=== PATIENT | male | born 1990 | race Two or more races ===

== ENCOUNTER 2017-06-10 19:34 | Inpatient (IN) | payer OTHER ==
[2017-06-10 20:06] VITALS: BMI 38.0
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
--- NOTE | 2017-06-10 21:06 | HP ---
Admission ROS [facility] Chief Complaint: For rehab from alcohol, marijuana and percocet dependence Allergies/Adverse Reactions: Allergies Allergy/AdvReac Type Severity Reaction Status Date / Time No Known Allergies Allergy Verified 06/10/17 20:16 History of Present Illness: 27 years old male with hx of alcohol dependence and marijuana dependence seeking rehab. Denies in patient treatment and significant sobriety. Reports hx of bipolar disorder, anxiety disorder and depression. Denies medical hx. Exam Limitations: No Limitations - Ebola screening Have you traveled outside of the country in the last 21 days: No Have you had contact with anyone from an Ebola affected area: No Have you been sick,other than usual withdrawal symptoms: No Do you have a fever: No - Review of Systems Constitutional: No Symptoms Reported EENT: reports: No Symptoms Reported Respiratory: reports: No Symptoms reported GI: reports: No Symptoms Reported : reports: No Symptoms Reported Musculoskeletal: reports: Muscle Pain, Muscle Weakness Endocrine: reports: No Symptoms Reported Hematology: reports: No Symptoms Reported Psychiatric: reports: No Sypmtoms Reported, Mood/Affect Appropiate, Orientated x3 Other Systems: Reviewed and Negative Patient History - Patient Medical History Hx Anemia: No Hx Asthma: No Hx Chronic Obstructive Pulmonary Disease (COPD): No Hx Cancer: No Hx Cardiac Disorders: No Hx Congestive Heart Failure: No Hx Hypertension: No Hx Hypercholesterolemia: No HX Cerebrovascular Accident: No Hx Seizures: No Hx Dementia: No Hx Diabetes: No Hx Gastrointestinal Disorders: No Hx Liver Disease: No Hx Genitourinary Disorders: No Hx Sexually Transmitted Disorders: No Hx Renal Disease (ESRD): No Hx Thyroid Disease: No Hx Human Immunodeficiency Virus (HIV): No Hx Hepatitis C: No Hx Depression: Yes Hx Suicide Attempt: Yes Hx Bipolar Disorder: Yes Hx Schizophrenia: Yes - Patient Surgical History Past Surgical History: No Hx Neurologic Surgery: No Hx Cataract Extraction: No Hx Cardiac Surgery: No Hx Lung Surgery: No Hx Abdominal Surgery: No Hx Appendectomy: No Hx Cholecystectomy: No Hx Genitourinary Surgery: No Hx Orthopedic Surgery: No Anesthesia Reaction: No - PPD History Previous Implant?: No PPD to be Administered?: Yes - Smoking Cessation Smoking history: Current every day smoker Aproximately how many cigarettes per day: 40 Hx Chewing Tobacco Use: No Initiated information on smoking cessation: Yes 'Breaking Loose' booklet given: 06/10/17 - Substance & Tx. History Hx Alcohol Use: Yes (BEER/VODKA) Hx Substance Use: Yes (PERCOCET, MARIJUANA) Substance Use Type: Alcohol, Marijuana, Opiates Hx Substance Use Treatment: Yes (OUTPATIENT) - Substances Abused Alcohol Route: Oral Frequency: 1-2 times per week Amount used: 2 PINTS OF VODKA/ 2 of 6 PACKS Age of first use: 8 Date of Last Use: 06/10/17 Marijuana/Hashish Route: Smoking Frequency: Daily Amount used: $10 Age of first use: 13 Date of Last Use: 06/09/17 PERCOCET Route: Oral Frequency: 1-3 times last 30 days Amount used: 20mg Age of first use: 23 Date of Last Use: 05/31/17 Family Disease History - Family Disease History Family Disease History: Diabetes: Grandparent (grandmother), Heart Disease: Father (HTN), Mother (HTN) Admission Physical Exam [facility] - Vital Signs Vital Signs: Vital Signs - 24 hr 06/10/17 20:04 Temperature 97.7 F Pulse Rate 84 Respiratory 20 Rate Blood Pressure 146/67 - Physical General Appearance: Yes: Obese HEENTM: Yes: Normal Voice, EDWIN Respiratory: Yes: Lungs Clear, Normal Breath Sounds, No Respiratory Distress Neck: Yes: Supple Breast: Yes: Breast Exam Deferred Cardiology: Yes: Regular Rhythm, Regular Rate, S1, S2 Abdominal: Yes: Normal Bowel Sounds, Soft Genitourinary: Yes: Within Normal Limits Back: Yes: Normal Inspection Musculoskeletal: Yes: Within Normal Limits Extremities: Yes: Normal Inspection Neurological: Yes: Fully Oriented, Alert Integumentary: Yes: Dry, Other (Tatoos to left chest wall, both hands) Lymphatic: Yes: Within Normal Limits - Diagnostic (1) Opioid abuse Current Visit: Yes Status: Chronic (2) Alcohol dependence Current Visit: Yes Status: Chronic (3) Cannabis dependence Current Visit: Yes Status: Chronic Cleared for Admission [facility] - Detox or Rehab [facility] Level of Care: Observation Bed Detox Regimen/Protocol: Not Applicable Claeared for Rehab Admission: Yes [facility] Breath Alcohol Content Breath Alcohol Content: 0 Urine Drug Screen - Results Drug Screen Negative: No Urine Drug Screen Results: THC-Marijuana Inpatient Rehab Admission - Initial Determination Are CD services needed?: Yes Free of communicable disease: Yes Not in need of hospitalization: Yes - Rehab Admission Criteria Previous failed treatment: Yes Poor recovery environment: Yes Comorbidities: Yes Lacks judgement: No Patient is meeting Inpatient Rehab admission criteria:: Yes
[2017-06-10] MEDS ORDERED: MAGNESIUM HYDROX 2400MG/30ML ORAL SUSPENSION 30 ML CUP PO PRN (22:16)
[2017-06-10] MEDS ORDERED: guaiFENesin/D-METHORPHAN HB 10 ML UNIT-DOSE CUPS PO PRN (22:16)
[2017-06-10] MEDS ORDERED: MENTHOL/PHENOL 1 EACH UD MM PRN (22:16)
[2017-06-10] MEDS ORDERED: MAG HYDROX/AL HYDROX/SIMETH 30 ML UNIT-DOSE CUP PO PRN (22:16)
[2017-06-10] MEDS ORDERED: NICOTINE POLACRILEX 2 MG GUM BC PRN (22:16)
[2017-06-10] MEDS ORDERED: P-EPHED 60MG/TRIPROLIDI 2.5MG TABLET PO PRN (22:16)
[2017-06-10] MEDS ORDERED: ACETAMINOPHEN 325 MG TABLET (FP) PO PRN (22:16)
[2017-06-10] MEDS ORDERED: IBUPROFEN 400 MG TABLET (FP) PO PRN (22:16)
[2017-06-10] MEDS ORDERED: LOPERAMIDE HCL 2 MG CAPSULE PO PRN (22:16)
[2017-06-10] MEDS ORDERED: MAGNESIUM CITRATE 300 ML BOTTLE PO PRN (22:16)
[2017-06-10] MEDS ORDERED: TUBERCULIN PPD 5 TU/0.1ML VIAL ID ONE (23:02)
[2017-06-10] MEDS: diphenhydrAMINE HCL 50 MG CAPSULE PO PRN (23:05)
[2017-06-10 23:28] LABS: URINE APPEARANCE CLEAR; URINE BILIRUBIN NEGATIVE (NEGATIVE); URINE BLOOD NEGATIVE (NEGATIVE); URINE COLOR LTYELLOW; URINE GLUCOSE (UA) NEGATIVE (NEGATIVE); URINE KETONE TRACE (NEGATIVE); URINE NITRITE NEGATIVE (NEGATIVE); URINE PROTEIN NEGATIVE (NEGATIVE); URINE UROBILINOGEN NEGATIVE mg/dL (0.2-1.0)
[2017-06-11] MEDS: NICOTINE 14 MG/24 HOURS TOPICAL PATCH TD SCH (10:03)
[2017-06-11] MEDS: PRENATAL VITAMINS W/ FOLIC ACID TABLET (FP) PO SCH (10:03)
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
[2017-06-11 10:47] LABS: MCH 30.5 pg (25.7-33.7); MCHC 33.2 g/dl (32.0-35.9); MEAN CELL VOLUME 92.1 fl (80-96); PLATELET COUNT 280 K/MM3 (134-434); RDW 13.6 % (11.9-15.9); WHITE BLOOD COUNT 9.5 K/mm3 (4.0-10.0)
[2017-06-11 11:11] LABS: ALBUMIN 3.5 g/dl (3.4-5.0); ALK PHOS 57 U/L (45-117); ANION GAP 6 (8-16); BILIRUBIN,TOTAL 0.5 mg/dL (0.2-1.0); CO2 30 mmol/L (21-32); CREATININE 0.9 mg/dL (0.7-1.3); GLUCOSE,RANDOM 94 mg/dL (74-106); SGOT/AST 15 U/L (15-37); SGPT/ALT 24 U/L (12-78); TOT PROT 6.8 g/dl (6.4-8.2)
[2017-06-11 11:13] LABS: SICKLE CELL SCREEN NEGATIVE (NEGATIVE)
[2017-06-11 11:24] LABS: URINE LEUK ESTERASE Negative (NEGATIVE)
[2017-06-11] MEDS: hydrOXYzine PAMOATE 50 MG CAPSULE (FP) PO PRN ×2 (12:06→19:26)
--- NOTE | 2017-06-11 13:06 | EKG ---
Test Reason : Blood Pressure : / mmHG Vent. Rate : 062 BPM Atrial Rate : 062 BPM P-R Int : 186 ms QRS Dur : 098 ms QT Int : 386 ms P-R-T Axes : 024 052 015 degrees QTc Int : 391 ms NORMAL SINUS RHYTHM SEPTAL INFARCT , AGE UNDETERMINED ABNORMAL ECG NO PREVIOUS ECGS AVAILABLE Confirmed by TRISHA MARTINEZ, JUAN ([id number]) on 06/11/2017 1:06:15 PM Referred By: Eze Munoz Confirmed By:JUAN RICO MD
[2017-06-11] MEDS: THIAMINE HCL 100 MG TABLET (FP) PO SCH (21:55)
[2017-06-11] MEDS: DIVALPROEX SODIUM 500 MG TABLET E.C. PO SCH (21:55)
[2017-06-11] MEDS: HALOPERIDOL 5 MG TABLET (FP) PO PRN (21:57)
[2017-06-12] MEDS: PRENATAL VITAMINS W/ FOLIC ACID TABLET (FP) PO SCH (10:23)
[2017-06-12] MEDS: DIVALPROEX SODIUM 500 MG TABLET E.C. PO SCH ×2 (10:23→21:11)
[2017-06-12] MEDS: HALOPERIDOL 5 MG TABLET (FP) PO PRN ×2 (10:24→21:12)
[2017-06-12] MEDS: NICOTINE 14 MG/24 HOURS TOPICAL PATCH TD SCH (10:24)
[2017-06-12] MEDS: hydrOXYzine PAMOATE 50 MG CAPSULE (FP) PO PRN (16:44)
[2017-06-12] MEDS: THIAMINE HCL 100 MG TABLET (FP) PO SCH (21:11)
[2017-06-12] MEDS: diphenhydrAMINE HCL 50 MG CAPSULE PO PRN (21:11)
[2017-06-13 07:33] VITALS: BP 124/76; PULSE 64; TEMP 98.9
[2017-06-13] MEDS: NICOTINE 14 MG/24 HOURS TOPICAL PATCH TD SCH (09:42)
[2017-06-13] MEDS: PRENATAL VITAMINS W/ FOLIC ACID TABLET (FP) PO SCH (09:42)
[2017-06-13] MEDS: DIVALPROEX SODIUM 500 MG TABLET E.C. PO SCH (09:42)
[2017-06-13] MEDS: HALOPERIDOL 5 MG TABLET (FP) PO PRN (09:43)
[2017-06-13] MEDS: hydrOXYzine PAMOATE 50 MG CAPSULE (FP) PO PRN (11:10)
--- NOTE | 2017-06-13 11:23 | PN ---
Psychiatric Progress Note Vital Signs: Vital Signs Period Temp Pulse Resp BP Sys/Lau Pulse Ox Last 24 Hr 98.9 F 64 18-20 124/76 Date of Session: 06/13/17 Chief Complaint:: " I need something to calm me down.I am getting agitated." HPI: Day 3 of rehabilitation treatment for alcohol and marijuana dependence co- morbid with bipolar disorder.Psychiatric consultation is sought due to patient' s complaint of increasing anxiety and agitation.Mr Mercado got medicated with haloperidol.He is now requesting disharge AMA. ROS: Restless,agitated,tense.Alert and fully oriented. Current Medications: Active Medications Generic Name Dose Route Start Last Admin Trade Name Freq PRN Reason Stop Dose Admin Acetaminophen 650 mg 06/10/17 22:16 Tylenol - PO Q4H PRN PAIN Al Hydroxide/Mg Hydroxide 30 ml 06/10/17 22:16 Mylanta Oral Suspension - PO Q6H PRN DYSPEPSIA Diphenhydramine HCl 50 mg 06/10/17 22:16 06/12/17 21:11 Benadryl - PO 50 mg HSMR1 PRN Administration INSOMNIA Divalproex Sodium 500 mg 06/11/17 22:00 06/13/17 09:42 Depakote - PO 500 mg BID ELSIE Administration Eucalyptus/Menthol/Phenol/Sorbitol 1 each 06/10/17 22:16 Cepastat Lozenge - MM Q4H PRN SORE THROAT Guaifenesin 10 ml 06/10/17 22:16 Robitussin Dm - PO Q6H PRN COUGH Haloperidol 5 mg 06/11/17 14:41 06/13/17 09:43 Haldol - PO 5 mg BID PRN Administration AGITATION Hydroxyzine Pamoate 50 mg 06/10/17 22:16 06/12/17 16:44 Vistaril - PO 50 mg Q4H PRN Administration AGITATION Ibuprofen 400 mg 06/10/17 22:16 Motrin - PO Q6H PRN SEVERE PAIN Loperamide HCl 4 mg 06/10/17 22:16 Imodium - PO Q6H PRN DIARRHEA Magnesium Citrate 300 ml 06/10/17 22:16 Citroma - PO Q48H PRN CONSTIPATION Magnesium Hydroxide 30 ml 06/10/17 22:16 Milk Of Magnesia - PO DAILY PRN CONSTIPATION Nicotine 14 mg 06/11/17 10:00 06/13/17 09:42 Nicoderm Patch - TD Not Given DAILY ELSIE Nicotine Polacrilex 2 mg 06/10/17 22:16 06/12/17 15:59 Nicorette Gum - BC 2 mg Q2H PRN Administration NICOTINE REPLACEMENT RX Multivit/Folic Acid/Iron 1 tab 06/11/17 10:00 06/13/17 09:42 Vitamins ([facility]) - PO 1 tab DAILY ELSIE Administration Pseudoephedrine/Triprolidine 1 combo 06/10/17 22:16 Actifed - PO TID PRN NASAL CONGESTION Thiamine HCl 100 mg 06/11/17 22:00 06/12/17 21:11 Vitamin B1 - PO 100 mg HS ELSIE Administration Medication(s) Change(s): No changes. Current Side Effect: No Lab tests ordered: No Lab tests reviewed: Yes Provider note:: Met with the patient.Mr Mercado is guarded,tense and overwhelmingly anxious.He is getting more intimidating and menacing.Patient shows no insight into his condition.Just got medicated.Not safe to be allowed to leave the institution at this time.EMS is activated because the situation has escalated into an emergency.Patient cannot be managed in a drug rehabilitation setting.Mr Mercado can pose an immediate danger to others at this time.He is transferred to the psychiatric emergency department at [facility] for appropriate care. Total face to face time:: 30 Mental Status Exam - Mental Status Exam Alert and Oriented to: Time, Place, Person Cognitive Function: Grossly Intact Patient Appearance: Bizarre Mood: Angry, Withdrawn, Anxious, Irritable Affect: Mood Congruent Patient Behavior: Restless, Uncooperative, Guarded, Suspicious Speech Pattern: Clear Voice Loudness: Mildly Loud Thought Process: Circumstantial Thought Disorder: Bizarre Additional Comments: Mental status cannot be completed due to patient's uncooperativeness. Psychiatric Treatment Plan - Problem List (1) Schizoaffective disorder Current Visit: Yes (2) Cannabis dependence, uncomplicated Current Visit: Yes (3) Nicotine dependence Current Visit: Yes (4) Opioid dependence Current Visit: Yes (5) Alcohol dependence Current Visit: Yes
== END 2017-06-13 11:42 | disposition short-term general hospital (02) | DRG 772 ==
LOC: YASAS 19:34 → Y3W 20:57
PROVIDERS: ADMIT Psychiatry & Neurology Psychiatry; ATTEND Psychiatry & Neurology Psychiatry
PROC: HZ42ZZZ Group Counseling for Substance Abuse Treatment, Cognitive-Behavioral (ICD-10-PCS; principal; 2017-06-10)
DX: F11.20 Opioid dependence, uncomplicated (principal); F10.20 Alcohol dependence, uncomplicated; F12.20 Cannabis dependence, uncomplicated; F17.210 Nicotine dependence, cigarettes, uncomplicated; F25.9 Schizoaffective disorder, unspecified; F31.9 Bipolar disorder, unspecified; Z91.5 Personal history of self-harm
CPT/HCPCS: 36415; 80053; 80164; 81003; 85027; 85660; 86593; 93005; 93010